=== PATIENT | female | born 1975 | race Caucasian/White ===

== ENCOUNTER → 2023-12-01 11:17 | Outpatient (REF) | payer OTHER, SELFPAY | LOC: HWCARD 11:17 | PROVIDERS: ATTENDING PHYSICIAN Psychiatry & Neurology Psychiatry; FAMILY PHYSICIAN Family Medicine | DX: R68.89 Other general symptoms and signs (principal) | CPT/HCPCS: 93005 ==

== ENCOUNTER → 2024-07-08 11:03 | Outpatient (REF) | payer OTHER, SELFPAY | LOC: HWWDC 11:03 | PROVIDERS: ATTENDING PHYSICIAN Student in an Organized Health Care Education/Training Program; FAMILY PHYSICIAN Family Medicine | DX: Z12.31 Encounter for screening mammogram for malignant neoplasm of breast (principal) | CPT/HCPCS: 77063; 77067 ==

== ENCOUNTER → 2025-06-05 12:10 | Outpatient (REF) | payer BC, SELFPAY | LOC: HWCARD 12:10 | PROVIDERS: FAMILY PHYSICIAN Family Medicine | DX: F25.9 Schizoaffective disorder, unspecified (principal); F41.9 Anxiety disorder, unspecified | CPT/HCPCS: 93005 ==

== ENCOUNTER → 2025-07-10 11:09 | Outpatient (REF) | payer BC, SELFPAY | LOC: WDC 11:09 | PROVIDERS: ATTENDING PHYSICIAN Student in an Organized Health Care Education/Training Program; FAMILY PHYSICIAN Family Medicine | DX: Z12.31 Encounter for screening mammogram for malignant neoplasm of breast (principal) | CPT/HCPCS: 77063; 77067 ==